=== PATIENT | male | born 1990 ===

== ENCOUNTER 2021-07-22 23:35 | Emergency (ER) | payer OTHER, SELFPAY ==
[2021-07-23] MEDS ORDERED: FAMOTIDINE 20 MG/2 ML INJ IV ONE (03:37)
[2021-07-23] MEDS ORDERED: ONDANSETRON 4 MG/2 ML INJ IV ONE (03:37)
[2021-07-23] MEDS ORDERED: SODIUM CHLORIDE 0.9% 1000 ML 1,000 ML IV ONE (03:37)
[2021-07-23] MEDS ORDERED: DICYCLOMINE 20 MG/2 ML INJ IM ONE (03:37)
--- NOTE | 2021-07-23 03:41 | Emergency Department Report ---
ED General Adult HPI - General Chief complaint: Nausea/Vomiting/Diarrhea Stated complaint: COUGH/COVID Time Seen by Provider: 07/23/21 02:43 Source: patient Mode of arrival: Ambulatory Limitations: No Limitations - History of Present Illness Initial comments: 31-year-old male patient presents to the emergency department with complaints of fatigue, cough, nausea, vomiting, and abdominal pain starting yesterday. Patient tested positive for COVID-19 10 days ago. Patient states his is exhibiting similar symptoms. No recent travel. No current steroid or antibiotic use. No history of prior abdominal surgeries. Patient admits to drinking alcohol on occasion. States his last alcoholic beverage consumption was approximately 1 month ago. Denies fever, chills, diarrhea, constipation, rectal bleeding, melena, urinary symptoms. Denies all other complaints at this time. - Related Data Previous Rx's Medication Instructions Recorded Last Taken Type Amoxicillin [Trimox] 1,000 mg PO Q8HR 7 Days capsule 07/23/21 Unknown Rx Azithromycin [Zithromax TAB] 250 mg PO QDAY 5 Days #6 tablet 07/23/21 Unknown Rx Metoclopramide [Reglan] 10 mg PO TID #20 tab 07/23/21 Unknown Rx Allergies Allergy/AdvReac Type Severity Reaction Status Date / Time No Known Allergies Allergy Unverified 07/23/21 00:31 ED Review of Systems ROS: Stated complaint: COUGH/COVID Other details as noted in HPI Other: GENERAL: Positive for fatigue. ENT: Negative for ear pain, difficulty hearing, sore throat, nasal congestion, epistaxis. CARDIOVASCULAR: Negative for chest pain, palpitations, lower extremity swelling. PULMONARY: Positive for cough. GASTROINTESTINAL: Positive for abdominal pain, nausea, vomiting. MUSCULOSKELETAL: Negative for joint pain, joint swelling, myalgias, back pain, neck pain. NEUROLOGICAL: Negative for headache, seizure, syncope, paresthesias, weakness. INTEGUMENTARY: Negative for erythema, rash, diaphoresis, laceration, ecchymosis. HEMATOLOGICAL: Negative for hemoptysis, hematemesis, hematochezia, hematuria. PSYCHIATRIC: Negative for hallucinations, suicidal ideation, homicidal ideation, anxiety, depression. ED Past Medical Hx - Past Medical History Previous Medical History?: No - Surgical History Past Surgical History?: No - Medications Home Medications: Home Medications Medication Instructions Recorded Confirmed Last Taken Type Amoxicillin [Trimox] 1,000 mg PO Q8HR 7 Days capsule 07/23/21 Unknown Rx Azithromycin [Zithromax TAB] 250 mg PO QDAY 5 Days #6 tablet 07/23/21 Unknown Rx Metoclopramide [Reglan] 10 mg PO TID #20 tab 07/23/21 Unknown Rx ED Physical Exam - General Limitations: No Limitations - Other Other exam information: General: Awake and alert. No acute distress. Head: Atraumatic, normocephalic. Eyes: EOMI. Pupils are equal and round. Normal sclera and conjunctiva. ENT: Oral mucosa is moist. Normal pharyngeal exam. Neck: Supple. No lymphadenopathy. Pulmonary: No respiratory distress. Clear to auscultation bilaterally. Cardiac: Tachycardic. Pulses are palpable and equal bilaterally. No lower extremity cyanosis or edema. Skin: Warm and dry. No rashes. Abdomen: Soft, non-protuberant. Epigastric tenderness without guarding, rigidity, or rebound. Bowel sounds are normal. No organomegaly or masses noted. Back: Normal alignment. No CVA tenderness. Extremities: Symmetrical. Full range of motion intact. Neurological: Alert and oriented, appropriately interactive, no focal deficits. Psych: Cooperative. Appropriate mood and affect. Speech is evenly metered. Thoughts are logically construed. ED Course Vital Signs 07/23/21 07/23/21 07/23/21 00:29 06:00 08:00 Temperature 98.0 F Pulse Rate 112 H 82 96 H Respiratory 18 20 20 Rate Blood Pressure 117/81 115/58 Blood Pressure 112/83 [Right] O2 Sat by Pulse 97 97 100 Oximetry 07/23/21 07/23/21 08:24 10:09 Temperature 98.4 F Pulse Rate 91 H Respiratory 20 20 Rate Blood Pressure Blood Pressure 109/64 [Right] O2 Sat by Pulse 99 99 Oximetry ED Medical Decision Making - Lab Data Result diagrams: 07/23/21 03:56 07/23/21 03:56 - Radiology Data [facility] [address] [place] [address] XRay Report Signed Patient: JAMEY NORMAN MR#: [id number] : 1990 Acct:[id number] Age/Sex: 31 / M ADM Date: 07/22/21 Loc: ED Attending Dr: Ordering Physician: PAUL CARRILLO Date of Service: 07/23/21 Procedure(s): XR chest 1V ap Accession Number(s): [id number] cc: PAUL CARRILLO Fluoro Time In Minutes: CHEST 1 VIEW 07/23/2021 3:10 AM INDICATION / CLINICAL INFORMATION: cough, (+) COVID, feels worse. COMPARISON: None available. FINDINGS: SUPPORT DEVICES: None. HEART / MEDIASTINUM: No significant abnormality. LUNGS / PLEURA: Patchy peripheral airspace opacities No pneumothorax. ADDITIONAL FINDINGS: No significant additional findings. IMPRESSION: 1. Patchy peripheral airspace opacities which can be seen with Covid pneumonia. Signer Name: Rick Sorenson DO Signed: 07/23/2021 4:17 AM Workstation Name: [id number] Transcribed By: GUSTAVO Dictated By: RICK SORENSON DO Electronically Authenticated By: RICK SORENSON DO Signed Date/Time: 07/23/21416 DD/ 6 TD/TT: - Medical Decision Making Differential diagnosis including but not limited to: pneumonia, hepatobiliary disease, pancreatitis, peptic ulcer disease, viral illness On reevaluation, patient remains stable. Chest x-ray shows patchy peripheral airspace opacities, suggestive of pneumonia. Labs pending. Repeat vitals pending. Care of patient transferred to Radha Stern PA-C at shift change for final disposition pending remainder of diagnostic work-up. Anticipate discharge home. Critical care attestation.: If time is entered above; I have spent that time in minutes in the direct care of this critically ill patient, excluding procedure time. ED Disposition Clinical Impression: COVID-19 Pneumonia Qualifiers: Pneumonia type: due to unspecified organism Laterality: unspecified laterality Lung location: unspecified part of lung Qualified Code(s): J18.9 - Pneumonia, unspecified organism Disposition: 01 HOME / SELF CARE / HOMELESS Is pt being admited?: No Does the pt Need Aspirin: No Condition: Stable Instructions: COVID-19, Community-Acquired Pneumonia, Adult, [place], Bacterial Pneumonia (ED) Additional Instructions: Take Tylenol every 4 hours and Motrin every 8 hours as needed for pain/fever. Take Amoxicillin and Azithromycin with food as directed until complete. Increase your dietary intake of probiotic rich foods while taking this medication. Take Reglan as directed for nausea. Rest. Drink plenty of fluids. Wash hands frequently to prevent disease transmission. Do not share food or drinks with others. Please adhere to CDC guidelines regarding self-isolation precautions. Follow-up with primary care provider this week. Call Sunday to schedule an appointment. See referral information below. Return to the emergency department immediately for new or worsening symptoms. Prescriptions: Amoxicillin [Trimox] 1,000 mg PO Q8HR 7 Days capsule Metoclopramide [Reglan] 10 mg PO TID #20 tab Azithromycin [Zithromax TAB] 250 mg PO QDAY 5 Days #6 tablet Referrals: LUIS JACK MD [Staff Physician] - 3-5 Days [facility] [Provider Group] - 3-5 Days Forms: Work/School Release Form(ED)
--- NOTE | 2021-07-23 04:22 | XRay Report ---
CHEST 1 VIEW 07/23/2021 3:10 AM INDICATION / CLINICAL INFORMATION: cough, (+) COVID, feels worse. COMPARISON: None available. FINDINGS: SUPPORT DEVICES: None. HEART / MEDIASTINUM: No significant abnormality. LUNGS / PLEURA: Patchy peripheral airspace opacities No pneumothorax. ADDITIONAL FINDINGS: No significant additional findings. IMPRESSION: 1. Patchy peripheral airspace opacities which can be seen with Covid pneumonia. Signer Name: Rick Hilario DO Signed: 07/23/2021 4:17 AM Workstation Name: [id number]
[2021-07-23 05:05] LABS: Basophils # (Auto) 0.1 K/mm3 (0.0-0.1); Eosinophils % (Auto) 0.1 % (0.0-4.3); Hemoglobin 15.4 gm/dl (11.8-15.2); Lymphocytes # (Auto) 1.1 K/mm3 (1.2-5.4); Lymphocytes % (Auto) 17.9 % (13.4-35.0); Mean Corpuscular HGB Conc 35 % (32-34); Mean Corpuscular Volume 87 fl (84-94); Monocytes # (Auto) 0.4 K/mm3 (0.0-0.8); Monocytes % (Auto) 6.5 % (0.0-7.3); Platelet Count 146 K/mm3 (140-440); Red Blood Count 5.05 M/mm3 (3.65-5.03)
[2021-07-23 05:35] LABS: Alanine Aminotransferase 46 units/L (7-56); Albumin 4.4 g/dL (3.9-5); BUN/Creatinine Ratio 16; Blood Urea Nitrogen 14 mg/dL (9-20); Calcium 9.1 mg/dL (8.4-10.2); Hemolysis Index 3
[2021-07-23 10:10] VITALS: BP 109/64
== END 2021-07-23 10:12 | disposition home or self-care (01) ==
LOC: ED 23:35
DX: U07.1 COVID-19 (principal); J18.9 Pneumonia, unspecified organism; Z79.899 Other long term (current) drug therapy
CPT/HCPCS: 36415; 71045; 80053; 83690; 83735; 85025; 96361; 96372; 96374; 96375; 99284; J0500; J2405; J7030